=== PATIENT | female | born 1985 | race Caucasian/White ===

== ENCOUNTER 2018-02-27 07:10 | Day surgery (SDC) | payer OTHER ==
[~2018-02-27] VITALS: Ht 160 cm; Wt 73.0 kg
[~2018-02-27 07:10] MED LIST: ALBU2.5V11; CETI10TA24; HYDR-3240 PO; MIRENA IUD INTUTE; ONDA4TAB10 PO; PNV1TABL4
[2018-02-27 07:48] LABS: ALANINE AMINOTRANSFERASE 230 U/L (12-78); ALBUMIN 3.9 g/dL (3.4-5.0); ANION GAP 6 mmol/L (5-15); CALCIUM 8.3 mg/dL (8.5-10.1); CHLORIDE 103 mmol/L (98-107)
[2018-02-27 07:53] LABS: ALKALINE PHOSPHATASE 98 U/L (45-117); CREATININE 0.76 mg/dL (0.55-1.02); TOTAL PROTEIN 7.5 g/dL (6.4-8.2)
[2018-02-27 08:02] LABS: BASOPHILS # (AUTO) 0.03 x10^3/uL (0-0.1); BASOPHILS % (AUTO) 0 % (0-1); EOSINOPHILS # (AUTO) 0.03 x10^3/uL (0-0.4); EOSINOPHILS % (AUTO) 0 % (1-7); LYMPHOCYTES # (AUTO) 1.41 x10^3/uL (1-3.4); LYMPHOCYTES % (AUTO) 13 % (22-44); MD NO; MEAN CORPUSCULAR HEMOGLOBIN 31.9 pg (27.0-34.8); MEAN CORPUSCULAR HGB CONC 33.7 g/dL (32.4-35.8); MEAN CORPUSCULAR VOLUME 94.6 fL (80-100); MEAN PLATELET VOLUME 8.8 fL (7.4-10.4); MONOCYTES # (AUTO) 0.69 x10^3/uL (0.2-0.8); MONOCYTES % (AUTO) 7 % (2-9); NEUTROPHILS # (AUTO) 8.52 x10^3/uL (1.8-6.8); NEUTROPHILS % (AUTO) 80 % (42-75); PLATELET COUNT 253 x10^3/uL (130-400); RED BLOOD COUNT 4.29 x10^6/uL (3.82-5.3); RED CELL DISTRIBUTION WIDTH 13.8 % (9.6-15.2)
[2018-02-27 08:29] LABS: MICROSCOPIC INDICATED
[2018-02-27 08:42] LABS: CULTURE INDICATED? NO
[2018-02-27] MEDS ORDERED: SODIUM CHLORIDE 0.9% 1,000 ML IV ONE (08:49)
[2018-02-27] MEDS ORDERED: CEFOTETAN PMX 1GM/50ML 50 ML IV ONE (09:00)
[2018-02-27] MEDS ORDERED: MORPHINE SULFATE 4 MG/ML, 1ML IVPush PRN (09:00)
[2018-02-27] MEDS ORDERED: SODIUM CHLORIDE FLUSH 10ML SYR IVF ONE (09:00)
[2018-02-27] MEDS ORDERED: MORPHINE SULFATE 4 MG/ML, 1ML ONE (09:07)
[2018-02-27] MEDS ORDERED: CEFOTETAN PMX 1GM/50ML 50 ML ONE (09:07)
[2018-02-27 09:22] VITALS: BP 116/67
[2018-02-27] MEDS ORDERED: BUPIVACAINE/PF 0.25% ONE (09:25)
[2018-02-27] MEDS ORDERED: SCOPOLAMINE PATCH, 1.5MG PATCH.TD72 TD ONE (10:00)
[2018-02-27] MEDS ORDERED: ACETAMINOPHEN 500 MG TABLET PO ONE (10:00)
[2018-02-27] MEDS ORDERED: OxyconTIN ER 10 MG TAB.ER PO ONE (10:00)
[2018-02-27] MEDS ORDERED: GABAPENTIN 300 MG CAPSULE PO ONE (10:00)
[2018-02-27] MEDS ORDERED: ONDANSETRON ODT 8 MG PO ONE (10:00)
[2018-02-27] MEDS ORDERED: NEOSTIGMINE 1 MG/ML, 10ML ONE (10:15)
[2018-02-27] MEDS ORDERED: GLYCOPYRROLATE 0.2MG/1ML, 5ML ONE (10:15)
[2018-02-27] MEDS ORDERED: SUCCINYLCHOLINE 20 MG/ML, 10ML ONE (10:15)
[2018-02-27] MEDS ORDERED: MIDAZOLAM 1 MG/ML, 2ML ONE (10:15)
[2018-02-27] MEDS ORDERED: DEXAMETHASONE 4 MG/ML, 5ML ONE (10:15)
[2018-02-27] MEDS ORDERED: ROCURONIUM 10 MG/ML,10ML ONE (10:15)
[2018-02-27] MEDS ORDERED: PROPOFOL 10 MG/ML, 20ML ONE (10:15)
[2018-02-27] MEDS ORDERED: FENTANYL PF 250 MCG/5ML ONE (10:16)
[2018-02-27] MEDS ORDERED: BUPIVACAINE/PF-EPI 0.25% 1:200K IM ONE (10:35)
[2018-02-27] MEDS ORDERED: PROMETHAZINE 25 MG/ML, 1ML IV PRN (11:00)
[2018-02-27] MEDS ORDERED: hydrALAzine 20 MG/ML, 1ML IV PRN (11:00)
[2018-02-27] MEDS ORDERED: MEPERIDINE/PF 25MG/0.5ML IVPush PRN (11:00)
[2018-02-27] MEDS ORDERED: HYDROcodone/APAP 7.5-325MG/15ML UDC PO PRN (11:00)
[2018-02-27] MEDS ORDERED: MIDAZOLAM 1 MG/ML, 2ML IV PRN (11:00)
[2018-02-27] MEDS ORDERED: HYDROmorphone 1 MG/ML, 1ML IV PRN (11:00)
[2018-02-27] MEDS ORDERED: OXYcodone 5 MG/5 ML ORAL.SOL UDC PO PRN (11:00)
[2018-02-27] MEDS ORDERED: LABETALOL 5MG/ML, 20ML IV PRN (11:00)
[2018-02-27] MEDS ORDERED: ALBUTEROL SULFATE 2.5 MG/3 ML NPPB PRN (11:00)
[2018-02-27] MEDS ORDERED: HALOPERIDOL 5 MG/ML IV PRN (11:00)
[2018-02-27] MEDS ORDERED: FENTANYL PF 100 MCG/2ML ONE ×2 (11:35→12:14)
[2018-02-27] MEDS: FENTANYL PF 100 MCG/2ML IV PRN ×4 (11:38→12:27)
[2018-02-27] MEDS ORDERED: OXYcodone 5 MG/5 ML ORAL.SOL UDC ONE (11:39)
[2018-02-27] MEDS ORDERED: MEPERIDINE/PF 25MG/0.5ML ONE (11:51)
== END 2018-02-27 14:52 | disposition home or self-care (01) ==
LOC: ED 09:08 → UNDOADMIN 09:30 → EDIP 09:30 → SDC 10:55 → UNDODISIN 14:52 → SDC 14:52
PROVIDERS: ATTEND Surgery
DX: K80.12 Calculus of gallbladder with acute and chronic cholecystitis without obstruction (principal); K66.0 Peritoneal adhesions (postprocedural) (postinfection); Z88.2 Allergy status to sulfonamides; Z88.8 Allergy status to other drugs, medicaments and biological substances; Z88.1 Allergy status to other antibiotic agents; Z91.040 Latex allergy status
CPT/HCPCS: 36415; 47562; 76700; 80053; 81001; 83690; 84703; 85025; 88304; 96365; 96375; 99285; J0330; J1100; J2175; J2250; J2704; J2710; J3010; J3490; J7030; Q0162; S0074